=== PATIENT | female | born 1950 | race Caucasian/White ===

== ENCOUNTER → 2018-12-28 07:42 | Outpatient (CLI) | payer MEDICARE, OTHER, SELFPAY ==
--- NOTE | 2018-12-28 | DI.MRI.S_ITS ---
PROCEDURE: MR CERVICAL SPINE WO CON INDICATIONS: CERVICAL RADICULOPATHY TECHNIQUE: Noncontrast sagittal T1 spin echo and T2 fast spin echo, sagittal STIR, foraminal oblique sagittal T2 fast spin echo, and axial gradient echo or T2 fast spin echo through the cervical spine. COMPARISON: None. FINDINGS: Image quality: Excellent. Alignment and Curvature: There is normal bony alignment. Bone Marrow: Reactive endplate changes noted adjacent to the C4 and C5, C5-C6 and C6-C7 discs. Spinal Cord: Visualized spinal cord has normal size and signal. No cerebellar tonsillar herniation. Severe mucosal thickening in the visualized left maxillary sinus. Paraspinous Soft Tissues: No paravertebral masses. Prevertebral soft tissues are normal in thickness. C2-C3: Loss of the signal. Mild right and severe left facet hypertrophy. No central stenosis. Severe left neural foraminal narrowing with compression of the exiting left C3 nerve root. C3-C4: Loss of disc signal. Mild diffuse dysfunction and severe right and mild left facet hypertrophy. Mild right uncovertebral joint hypertrophy. No central stenosis Moderate right and mild left neural foraminal narrowing. No neural compression. C4-C5: Loss of disc signal. Mild to moderate diffuse disc bulge. Mild right and severe left facet hypertrophy. Moderate bilateral uncovertebral joint hypertrophy. Mild narrowing of the central canal. Moderate right and severe left neural foraminal narrowing with compression of the exiting left C5 nerve root. C5-C6: Loss of disc signal and height. Mild to moderate diffuse disc bulge. Mild bilateral facet hypertrophy. Severe bilateral uncovertebral joint hypertrophy. Moderate narrowing of the central canal. Severe bilateral neural foraminal narrowing with compression of the exiting C6 nerve roots. C6-C7: Loss of disc signal and height. Moderate, diffuse disc bulge. Mild bilateral facet hypertrophy. Mild narrowing of the central canal. Mild bilateral neural foraminal narrowing. No neural compression. C7-T1: Loss of disc signal. No central stenosis. No neural foraminal narrowing. No neural compression IMPRESSION: 1. Multilevel degenerative disc disease. 2. Multilevel facet and uncovertebral arthropathy. 3. Moderate C5-C6 central canal narrowing. Mild C4-C5 and C6-C7 central 4. Severe bilateral C5-C6 neural foraminal narrowing. Moderate right and severe left C4 and C5 neural foraminal narrowing. Severe left C2-C3 neural foraminal narrowing. Moderate right and mild left C3 on C4 neural foraminal narrowing. Mild bilateral C6-C7 neural foraminal narrowing. 5. Compression of the exiting left C3 nerve root, the exiting left C5 nerve root and the exiting bilateral C6 nerve roots secondary to neural foraminal narrowing. Please correlate with clinical data. 6 there is severe mucosal thickening in the visualized left maxillary sinus please correlate with clinical findings to exclude sinusitis. Dictated by: Zehra Munoz MD, PhD on 12/28/2018 at 14:56 Approved by: Zehra Munoz MD, PhD on 12/28/2018 at 15:03
== END ==
PROVIDERS: Visit Provider Family Medicine
DX: M54.12 Radiculopathy, cervical region (principal)
CPT/HCPCS: 72141; A9579

== ENCOUNTER → 2020-07-19 10:43 | Outpatient (CLI) | payer MEDICARE, OTHER, SELFPAY ==
[2020-07-19] MEDS: COVID-19 VACC, Ad26(JANSSEN)/PF 0.5 ML IM (10:50)
== END ==
PROVIDERS: Visit Provider Internal Medicine
DX: Z23 Encounter for immunization (principal)
CPT/HCPCS: 0031A; 91303

== ENCOUNTER → 2020-12-06 13:03 | Outpatient (CLI) | payer MEDICARE, OTHER, SELFPAY ==
--- NOTE | 2020-12-06 | DI.MRI.S_ITS ---
PROCEDURE: MR CERVICAL SPINE WO CON INDICATIONS: SPONDYLOSIS WITH RADICULOPATHY TECHNIQUE: Noncontrast sagittal T1 spin echo and T2 fast spin echo, sagittal STIR, foraminal oblique sagittal T2 fast spin echo, and axial gradient echo or T2 fast spin echo through the cervical spine. COMPARISON: [facility], MR, MR CERVICAL SPINE WO CON, 12/28/2018, 8:05. FINDINGS: Image quality: Excellent. Alignment and Curvature: Straightening of the normal lordotic curvature. Grade 1 anterolisthesis of C3 on C4 and grade 1 retrolisthesis of C5 on C6. Bone Marrow: Multilevel degenerative endplate sclerosis and spurring. Diffuse facet arthropathy. No acute fracture identified. Spinal Cord: Visualized spinal cord has normal size and signal. No cerebellar tonsillar herniation. Paraspinous Soft Tissues: No paravertebral masses. Prevertebral soft tissues are normal in thickness. C2-C3: No canal stenosis or right foraminal narrowing. Severe left foraminal stenosis with nerve root compression, this appears unchanged. C3-C4: No canal stenosis. Mild to moderate right foraminal stenosis with slight nerve root compression. No left foraminal narrowing. No interval change C4-C5: Mild right-sided canal narrowing. Moderate right foraminal stenosis with nerve root compression. Mild left foraminal stenosis. No definite interval change. C5-C6: Mild canal narrowing. Severe right foraminal stenosis with nerve root compression. Mild left foraminal narrowing. No interval change C6-C7: Mild canal narrowing. Mild bilateral foraminal narrowing, unchanged. C7-T1: No canal stenosis. Mild bilateral foraminal narrowing. IMPRESSION: Overall, no interval change since 12/28/18, with redemonstration of multilevel cervical spondylosis and facet arthropathy. Straightening of the normal lordotic curvature. Multilevel spondylolisthesis as above. Dictated by: Bhupendra Saenz M.D. on 12/06/2020 at 15:39 Approved by: Bhupendra Saenz M.D. on 12/06/2020 at 15:45
[2020-12-06 13:57] LABS: Appearance Urine UA CLEAR; Bilirubin Urine UA 1+ (NEGATIVE); Color Urine UA YELLOW; Glucose Urine UA NEGATIVE (Negative); Ketones Urine UA 1+ (NEGATIVE); Leukocyte Esterase Urine UA 3+ (NEGATIVE); Nitrite Urine UA NEGATIVE (Negative); Occult Blood Urine UA NEGATIVE (Negative); Protein Urine UA 1+ (Negative); Urobilinogen Urine UA 0.2 E.U./dL (0.2)
[2020-12-06 14:06] LABS: Bacteria Urine Many (>30); Culture Indicated Urine Specimen Cultured; Mucus Urine 2+ (Negative); RBC Urine 0-1/HPF (0-5/HPF); WBC Urine 10-30/HPF (0-5/HPF)
[2020-12-06 14:25] LABS: Ictotest Urine Positive (Negative)
== END ==
PROVIDERS: Referring Provider Neurological Surgery; Visit Provider Neurological Surgery
DX: Z01.812 Encounter for preprocedural laboratory examination (principal); M47.22 Other spondylosis with radiculopathy, cervical region; M43.12 Spondylolisthesis, cervical region; N39.0 Urinary tract infection, site not specified; R82.79 Other abnormal findings on microbiological examination of urine
CPT/HCPCS: 72141; 81001; 87077; 87086